=== PATIENT | female | born 1975 | race Caucasian/White ===

== ENCOUNTER → 2019-10-12 10:36 | Outpatient (CLI) | payer BC, SELFPAY ==
--- NOTE | ~2019-10-12 | MM_ITS ---
EXAMINATION: MM screening [place] BI w phi HISTORY: Screening mammogram TECHNIQUE: Craniocaudal and mediolateral oblique 3-D tomosynthesis images were obtained and synthetic 2-D images were generated. CAD analysis was submitted and interpreted. COMPARISON: No prior mammogram is available for comparison at this institution. BREAST PARENCHYMAL COMPOSITION: The breasts are heterogeneously dense, which may obscure small masses . FINDINGS: There is no evidence of suspicious mass, calcification, or architectural distortion to sugg est malignancy in either breast. There has been no suspicious interval change. IMPRESSION: 1. No mammographic evidence of malignancy. 2. Recommend routine screening mammography in one year. BI-RADS Category 1: Negative Reviewed, dictated and finalized at location A. ON GRADER
== END ==
PROVIDERS: PCP Family Medicine; Visit Provider Nurse Practitioner
DX: Z12.31 Encounter for screening mammogram for malignant neoplasm of breast (principal)
CPT/HCPCS: 77063; 77067

== ENCOUNTER 2021-12-29 10:18 | Emergency (ER) | payer OTHER, SELFPAY ==
[2021-12-29 10:22] VITALS: BP 142/89; PULSE 99; RESP 18; O2SAT 100
[2021-12-29 10:27] VITALS: TEMP 36.4
--- NOTE | 2021-12-29 11:22 | ED.GENADULT ---
HPI - General Adult General Chief complaint: Dental/Oral Stated complaint: headache Time Seen by Provider: 12/29/21 10:40 History of Present Illness HPI narrative: 46-year-old female presents to the emergency room for evaluation of left facial pain. Patient states that she been having a burning-like sensation to the left side of her face that radiates into her jaw to her nose and to her forehead. States pain does not go past the midline. Patient states that she has a history of canker sores, and shingles. Patient states the pain is similar. Patient states the pain is intermittent and is not alleviated or exacerbated by anything. Related Data Home Medications Medication Instructions Recorded Confirmed metformin mg PO 12/29/21 Allergies Allergy/AdvReac Type Severity Reaction Status Date / Time No Known Allergies Allergy Mild Verified 04/15/10 19:27 Review of Systems Review of Systems: CONSTITUTIONAL: Denies fever, chills, or sweats. EYES: Denies visual changes, redness, or discharge. ENT: Denies rhinorrhea, congestion, sore throat, or otalgia. CARDIOVASCULAR: Denies chest pain, palpitations, or edema. RESPIRATORY: Denies cough or dyspnea. GASTROINTESTINAL: Denies abdominal pain, nausea, vomiting, or diarrhea. GENITOURINARY: Denies dysuria or hematuria. SKIN: Denies rash or itching. MUSCULOSKELETAL: Denies back pain, joint pain, or myalgia. NEUROLOGIC: Reports left-sided facial pain PSYCHIATRIC: Denies anxiety or depression. Exam Narrative: GENERAL: Well-appearing, well-nourished, and in no acute distress. HEAD: Normocephalic, atraumatic. EYES: PERRLA and EOMI. ENT: Nares clear, no rhinorrhea or epistaxis. Mucous membranes moist. Oropharynx without tonsillar hypertrophy exudate or other lesions. Bilateral TMs pearly land nonbulging; no TMJ tenderness NECK: Supple. No adenopathy or masses. No carotid bruits or JVD CHEST: Clear to auscultation. No respiratory distress. No wheezes rales or rhonchi HEART: Regular rate and rhythm. No murmur heard. Normal peripheral pulses. EXTREMITIES: Normal range of motion. No edema. SKIN: Warm, dry, no rash. NEURO: No focal deficits. Alert and oriented x3. PSYCH: Normal mood and affect. Course Vital Signs Vital signs: Vital Signs Pulse Rate 99 05/03/22 10:22 Respiratory Rate 18 12/29/21 10:22 Blood Pressure 142/89 H 12/29/21 10:22 Pulse Oximetry 100 12/29/21 10:22 Temperature 36.4 C L 12/29/21 10:27 Pulse Rate 99 12/29/21 10:22 Respiratory Rate 18 12/29/21 10:22 Blood Pressure 142/89 H 12/29/21 10:22 Pulse Oximetry 100 12/29/21 10:22 Medical Decision Making [facility] Narrative Medical decision making narrative: 46-year-old female presents the emergency room for evaluation of left-sided facial pain, she describes as a burning sensation that happens intermittently over the past week. CBC shows a slight anemia. we will trial the patient on gabapentin and baclofen, at this time will not use Tegretol due to her history of iron deficiency anemia. Medical Records Medical records reviewed: Yes I reviewed the external patient's medical records. Vital Signs Vital Signs: Vital Signs Pulse Rate 99 12/29/21 10:22 Respiratory Rate 18 12/29/21 10:22 Blood Pressure 142/89 H 12/29/21 10:22 Pulse Oximetry 100 12/29/21 10:22 Temperature 36.4 C L 12/29/21 10:27 Pulse Rate 99 12/29/21 10:22 Respiratory Rate 18 12/29/21 10:22 Blood Pressure 142/89 H 12/29/21 10:22 Pulse Oximetry 100 12/29/21 10:22 Lab Data Lab results reviewed: Yes I reviewed the patient's lab results. Result diagrams: 12/29/21 11:28 Labs: Lab Results 12/29/21 Range/Units 11:28 WBC 5.8 (4.5-10.0) K/mm3 RBC 4.77 (4.2-5.4) M/mm3 Hgb 10.8 L (12.0-15.0) g/dL Hct 35.8 L (37.0-47.0) % MCV 75.1 L (80-100) fl MCH 22.6 L (26-34) pg MCHC 30.2 L (32-36) g/dl RDW 16.2 H (11.5-14.5) % Plt Count 395 H (150-375) k/mm3 M
[2021-12-29 11:33] LABS: Basophils Absolute Auto 0.1 K/mm3 (0.0-0.1); Basophils Percent Auto 1.4 % (0.2-1.2); Eosinophils Absolute Auto 0.3 K/mm3 (0-0.3); Eosinophils Percent Auto 5.3 % (0-4.4); Hematocrit 35.8 % (37.0-47.0); Hemoglobin 10.8 g/dL (12.0-15.0); Immature Granulocyte Absolute 0.03 K/mm3 (0.00-0.031); Immature Granulocyte Percent A 0.5 % (0-0.5); Lymphocytes Absolute Auto 1.31 K/mm3 (0.9-3.2); Lymphocytes Percent Auto 22.6 % (18.3-44.2); Mean Corpuscular HGB Conc 30.2 g/dl (32-36); Mean Corpuscular Hemoglobin 22.6 pg (26-34); Mean Corpuscular Volume 75.1 fl (80-100); Monocytes Absolute Auto 0.4 K/mm3 (0.1-0.6); Monocytes Percent Auto 7.6 % (2.6-8.5); Neutrophils Absolute Auto 3.6 K/mm3 (1.3-6.7); Neutrophils Percent Auto 62.6 % (45.5-73.1); Platelet Count Result 395 k/mm3 (150-375); Red Blood Count 4.77 M/mm3 (4.2-5.4); Red Cell Distribution Width 16.2 % (11.5-14.5); White Blood Count 5.8 K/mm3 (4.5-10.0)
== END 2021-12-29 12:32 | disposition home or self-care (01) ==
PROVIDERS: Emergency Provider Nurse Practitioner Family; PCP Family Medicine
DX: G50.0 Trigeminal neuralgia (principal); D50.9 Iron deficiency anemia, unspecified; Z79.84 Long term (current) use of oral hypoglycemic drugs
CPT/HCPCS: 36415; 85025; 99283

== ENCOUNTER 2022-10-30 16:10 | Emergency (ER) | payer OTHER, SELFPAY ==
[2022-10-30 16:23] VITALS: BP 138/87; PULSE 94; RESP 12; TEMP 36.6; O2SAT 100
--- NOTE | 2022-10-30 16:39 | ED.URI ---
HPI - URI/Sore Throat General Chief Complaint: Upper Respiratory Infection Stated Complaint: Sinus Time Seen by Provider: 10/30/22 16:16 Source: patient Mode of arrival: ambulatory Limitations: no limitations History of Present Illness HPI Narrative: Ms. Rg is a 47 year old female patient presenting to clinic today with complaints of sinus congestion, headache, and cough x8 days. She denies any fever or chills. She denies any known exposure to anyone with COVID, flu, or strep MD elicited complaint: cough, nasal congestion and sinus pain Related Data Home Medications Medication Instructions Recorded Confirmed metformin 500 mg tablet,extended mg PO 12/29/21 release 24 hr metformin 500 mg tablet,extended mg PO 10/30/22 10/30/22 release 24 hr valacyclovir 500 mg tablet mg 10/30/22 Allergies Allergy/AdvReac Type Severity Reaction Status Date / Time No Known Allergies Allergy Mild Verified 10/30/22 16:20 Review of Systems Review of Systems: Pertinent positives per HPI. Patient denies any fever, chills, rash, visual changes, dizziness, shortness of breath, chest pain, palpitations, nausea, vomiting, diarrhea, constipation, abdominal pain, or any urinary issues. PMFSH Comments At the time of my signature, I reviewed and agree with the nursing past medical, surgical, social, and family history. There is no relevant family history pertinent to the patient complaint. Exam Narrative: General: Well-developed, well nourished, in no apparent distress Head: Normocephalic, atraumatic Eyes: Pupils equally round and reactive to light bilaterally, EOM intact, sclera and conjunctive clear, no discharge, lids normal Ears: TMs intact and clear, ear canals clear, no drainage, grossly hearing normal. Nose: Nares patent, clear nasal discharge, moderate inflammation, maxillary sinus tenderness. Mouth: Oral pharynx without lesions or masses, good dentition, MMM. Postnasal drip Neck: Supple, trachea midline, no enlargement of anterior or posterior cervical nodes, no thyroid masses or goiter palpable. Cardio: Regular rate and rhythm, s1 and s2 normal, no murmur appreciated. Resp: Clear to auscultation bilaterally, no rhonchi, rales, wheezing or rubs Course Course Emergency Course: Portions of this record may have been created with voice recognition software. Level of Care: Express Care Visit Vital Signs Vital signs: Vital Signs Temperature 36.6 C 10/30/22 16:23 Pulse Rate 94 10/30/22 16:23 Respiratory Rate 12 10/30/22 16:23 Blood Pressure 138/87 10/30/22 16:23 Pulse Oximetry 100 10/30/22 16:23 Oxygen Delivery Room Air 10/30/22 16:23 Temperature 36.6 C 10/30/22 16:23 Pulse Rate 94 10/30/22 16:23 Respiratory Rate 12 10/30/22 16:23 Blood Pressure 138/87 10/30/22 16:23 Pulse Oximetry 100 10/30/22 16:23 Oxygen Delivery Room Air 10/30/22 16:23 Vital signs reviewed MDM - URI/Sore Throat MDM Narrative Medical decision making narrative: At the time of visit patient is resting comfortably on the exam table. I suspect patient has an upper respiratory infection with postnasal drip. Supportive measures were discussed with the patient she voiced understanding discharge instructions agrees to treatment plan. Prescription for prednisone was sent to pharmacy Differential Diagnosis Differential diagnosis: Likely upper respiratory infection, sinusitis, viral infection, influenza, pharyngitis and other (COVID) Discharge Plan Discharge Clinical Impression: PND (post-nasal drip), Acute dysfunction of both eustachian tubes Upper respiratory infection Qualifiers: URI type: unspecified URI Qualified Code(s): J06.9 - Acute upper respiratory infection, unspecified Patient Disposition: Home, Self-Care Condition: Stable Instructions: Antibiotic Form, Upper Respiratory Infection (ED), Postnasal Drip (DC) Additional Instructions: Take prescription medications only as prescrib
== END 2022-10-30 16:48 | disposition home or self-care (01) ==
PROVIDERS: Emergency Provider Nurse Practitioner Family; PCP Nurse Practitioner
DX: R09.82 Postnasal drip (principal); H69.93 Unspecified Eustachian tube disorder, bilateral; J06.9 Acute upper respiratory infection, unspecified
CPT/HCPCS: 99213; G0463

== ENCOUNTER → 2023-05-10 11:25 | Outpatient (CLI) | payer OTHER, SELFPAY ==
--- NOTE | ~2023-05-10 | US_ITS ---
EXAMINATION: US pelvic complete DATE: 05/10/2023 11:44 INDICATION: Excessive and frequent menstruation Comparison:No prior studies for comparison. TECHNIQUE: Multiple transabdominal and endovaginal sonographic images of the pelvis performed. FINDINGS: The uterus measures 11.2 x 5 x 6.5 cm. The endometrial complex measures 9 mm. The right ovary measures 2.4 x 2 x 2.7 cm and the left ovary measures 3.4 x 2.1 x 3 cm. There are sm all follicles in each ovary. Normal doppler signal in both ovaries. There is no free fluid in the pelvis. There are no abnormal masses seen on either side. IMPRESSION: 1. Unremarkable pelvic ultrasound. Reviewed, dictated and finalized at location L.
== END ==
PROVIDERS: PCP Nurse Practitioner; Visit Provider Nurse Practitioner
DX: N92.1 Excessive and frequent menstruation with irregular cycle (principal)
CPT/HCPCS: 76856

== ENCOUNTER → 2023-08-09 11:25 | Outpatient (CLI) | payer OTHER, SELFPAY ==
--- NOTE | ~2023-08-09 | MM_ITS ---
EXAMINATION: MM screening [place] BI w phi HISTORY: Screening TECHNIQUE: Craniocaudal and mediolateral oblique 3-D tomosynthesis images were obtained and synthetic 2-D images were generated. CAD analysis was submitted and interpreted. COMPARISON: 10/12/2019 BREAST PARENCHYMAL COMPOSITION: The breasts are heterogeneously dense, which may obscure small masses FINDINGS: There is a new focal asymmetry posteriorly and laterally on the right cc view. The left hailey ast is stable without evidence for malignancy. IMPRESSION: 1. New focal asymmetry lateral aspect of the right breast on CC view, posteriorly. 2. Additional mammographic views and possible breast ultrasound are recommended. BI-RADS Category 0: Incomplete: Needs additional imaging evaluation. Reviewed, dictated and finalized at location A. MICS AX DEVELOPER IMPRESSION: 1. New focal asymmetry lateral aspect of the right breast on CC view, posterior ly. 2. Additional mammographic views and possible breast ultrasound are recommended . BI-RADS Category 0: Incomplete: Needs additional imaging evaluation.
== END ==
PROVIDERS: PCP Nurse Practitioner; Visit Provider Nurse Practitioner
DX: Z12.31 Encounter for screening mammogram for malignant neoplasm of breast (principal); R92.8 Other abnormal and inconclusive findings on diagnostic imaging of breast
CPT/HCPCS: 77063; 77067

== ENCOUNTER → 2023-09-12 14:24 | Outpatient (CLI) | payer OTHER, SELFPAY ==
--- NOTE | ~2023-09-12 | MMUS_ITS ---
EXAMINATION: MM diagnostic [place] RT w phi, US breast RT limited HISTORY: Follow-up right breast mass TECHNIQUE: Additional 3-D tomosynthesis images of the right breast were performed and synthetic 2-D i mages were generated. CAD analysis was submitted and interpreted. High resolution Limited right breas t ultrasound was performed. COMPARISON: Comparison to multiple prior studies sequentially, with oldest reviewed study dated 10/12. BREAST PARENCHYMAL COMPOSITION: Breast composed of scattered areas of fibroglandular density FINDINGS: MAMMOGRAPHIC FINDINGS: There is a persistent mass in the lower outer quadrant of the right breast posteriorly. No suspicious calcifications or architectural distortion. ULTRASOUND: Limited right breast ultrasound: At 9:00, 6 cm from the nipple there is a 1.5 cm cyst corresponding t o the mammographic finding. There is an additional 9 mm cyst at 7:00, 3 cm from the nipple. No suspic ious solid masses are identified in the right breast to suggest malignancy. IMPRESSION: 1. No evidence for malignancy in the right breast. Benign findings. 2. . Routine yearly screening mammogram and regular clinical breast examination are recommended. BI-RADS CATEGORY 2 - BENIGN FINDINGS Reviewed, dictated and finalized at location A. D EDUCATION COORDINATOR IMPRESSION: 1. No evidence for malignancy in the right breast. Benign findings. 2. . Routine yearly screening mammogram and regular clinical breast examination are recommended. BI-RADS CATEGORY 2 - BENIGN FINDINGS
== END ==
PROVIDERS: PCP Obstetrics & Gynecology Gynecology; Visit Provider Obstetrics & Gynecology Gynecology
DX: R92.8 Other abnormal and inconclusive findings on diagnostic imaging of breast (principal)
CPT/HCPCS: 76642; 77061; 77065; G0279

== ENCOUNTER 2023-09-16 14:05 | Outpatient (CLI) | payer OTHER, SELFPAY ==
[2023-09-16 15:19] LABS: Hematocrit 39.9 % (37.0-47.0); Hemoglobin 12.6 g/dL (12.0-15.0)
== END 2023-09-16 14:06 | disposition home or self-care (01) ==
PROVIDERS: Anesthesiology; PCP Nurse Practitioner; Visit Provider Obstetrics & Gynecology Gynecology
DX: Z01.818 Encounter for other preprocedural examination (principal); D64.9 Anemia, unspecified
CPT/HCPCS: 36415; 85014; 85018

== ENCOUNTER 2023-09-19 01:19 | Day surgery (SDC) | payer OTHER, SELFPAY ==
[2023-09-15 08:35] VITALS: BMI 35.9
--- NOTE | 2023-09-15 08:44 | PC.NURSE ---
Report to the Outpatient Waiting Room, entrance under the green pavilion located off [facility], at time _0700_ on date _[id number]_. Planned Procedure Time: _0900_. Time changes happen often and if your time is changed the preop area will call you the afternoon before. - You and your visitor will be asked to self-screen and do not enter if you have any COVID symptoms. - A mask is optional within the hospital at this time. Patients may have clear liquids (water, carbonated beverages, clear teas, apple juice) until 3 hours prior to surgery with a maximum of 20 ounces. - No food from midnight until time of surgery Take the following medications with a SIP of water the morning of surgery: ____None DO NOT STOP ANY OF YOUR OTHER PRESCRIPTION MEDICATIONS PRIOR TO SURGERY ?EXCEPT THE FOLLOWING Medications to discontinue per physician ____All vitamins and supplements Date to take last beom__[id number] Please no make-up, nail american, hairspray, perfume, deodorant, or body powder the day of surgery. No jewelry (including any body piercings) or valuables the day of surgery, leave them at home. Please take a shower or bath the night before, or the morning of, surgery with an antibacterial soap. Wear comfortable, loose fitting clothing. - Jewelry must be removed prior to entering the operating room. Rings and piercings that are not removed may be cut off. - The hospital will not accept responsibility for valuables. - Please leave all valuables, including medications, at home the day of surgery. If you are going home after surgery, a licensed tour bus driver must drive you home. - NO public transportation without another adult if you receive anesthesia. - We recommend that an adult stay with you for 24 hours following discharge. - We also recommend that you do not drive, make important decision, drink alcoholic beverages, or take any drugs that were not prescribed by your health care provider for at least 24 hours after your discharge time. Follow any additional instructions given to you from your surgeon. If you or anyone in your household have experienced Covid symptoms in the past week, please notify your surgeon or the nurse liaison at the phone number below for possible testing. Telephone instructions given to __Lori_and asked if any additional questions and then verbalized understanding. Patient advised to call surgeon office or pre surgery nurse liaison [phone] if any additional questions.
--- NOTE | 2023-09-19 07:23 | WPDHPUPDATE1 ---
History and Physical Update Update Date/Time: 09/19/23 07:23 History and Physical has been reviewed, including an updated exam of the patient. There are NO changes in the patient's condition. Risks, benefits, and alternatives have been discussed and questions answered. Patient agrees to proceed with procedure.
--- NOTE | 2023-09-19 07:23 | PM.HPGS ---
History of Present Illness History of Present Illness Consent: Risks, benefits, and alternatives have been discussed and questions answered. Patient agrees to proceed with procedure. Chief complaint: Menorrhagia with anemia Narrative: Carmen Rg is a 47 year old female with prolonged and irregular bleeding. Hemoglobin was 10.7. Pelvic ultrasound was normal. It was recommended to undergo D&C hysteroscopy. Risks of infection, bleeding, perforation, and possible pathology are reviewed. Patient voices understanding and agrees to proceed. Review of Systems Review of Systems: not repeated day of surgery; patient states no changes in status [facility] Past Medical History Medical History (Updated 09/19/23 @ 07:27 by Mackenzie Thakur MD) Migraines (normal spontaneous vaginal delivery) x3 PCOS (polycystic ovarian syndrome) Trigeminal neuralgia Surgical History Surgical History (Updated 09/19/23 @ 07:26 by Mackenzie Thakur MD) History of D&C 2002 for spontaneous History of hysteroscopy 2017 benign History of tonsillectomy Social History Social History Smoking status: Never smoker Alcohol intake: current Drinks per week: 2 Living arrangements: with family Spiritual care concerns: No Meds Home Medications and Allergies Home Medications Medication Instructions Recorded Confirmed Type metformin 500 mg tablet,extended 1,000 mg PO BID 10/30/22 09/15/23 History release 24 hr valacyclovir 500 mg tablet 500 mg PO DAILY 10/30/22 09/15/23 History Tumeric 1,580 mg PO DAILY 09/15/23 09/15/23 History calcium 500 mg tablet 500 mg PO DAILY 09/15/23 09/15/23 History cholecalciferol (vitamin D3) 125 125 mcg PO DAILY 09/15/23 09/15/23 History mcg (5,000 unit) tablet (Vitamin D3) ferrous sulfate 15 mg iron/1.5 mL 10 mg PO DAILY 09/15/23 09/15/23 History oral suspension fexofenadine 180 mg tablet 180 mg PO DAILY 09/15/23 09/15/23 History fluticasone propionate 50 1 spray intranasal DAILY 09/15/23 09/15/23 History mcg/actuation nasal spray,suspension magnesium 250 mg tablet 250 mg PO DAILY 09/15/23 09/15/23 History omega-3 fatty acids 500 mg capsule 500 mg PO DAILY 09/15/23 09/15/23 History Allergies Allergy/AdvReac Type Severity Reaction Status Date / Time No Known Allergies Allergy Mild Verified 09/15/23 08:29 Exam Const: General: healthy appearing and alert Orientation/consciousness: patient oriented x3 Resp: Effort & Inspection: normal respiratory effort : External Female Exam: normal external appearance Speculum Exam - Vagina: normal appearance of the vagina and normal vaginal discharge Speculum Exam - Cervix: normal appearance of the cervix Bimanual exam- vagina & uterus: uterine size normal and consistency normal Bimanual Exam- Adnexa, other: normal adnexae and No adnexal tenderness Neuro: General: patient oriented x3 Assessment and Plan Assessment and plan (1) Menorrhagia: Code(s): N92.0 - Excessive and frequent menstruation with regular cycle Status: Acute Assessment and Plan: menorrhagia with anemia recommended to proceed with D&C hysteroscopy
[2023-09-19 07:24] VITALS: BP 131/91; PULSE 89; RESP 16; TEMP 36.5; O2SAT 100
[2023-09-19] MEDS: LACTATED RINGERS 1,000 ML 30 ML IV CONT (07:30)
[2023-09-19] MEDS: ACETAMINOPHEN 500 MG TABLET 1000 MG PO (07:42)
--- NOTE | 2023-09-19 08:06 | P.PNAN_ITS ---
Anes - Initial Pre Proc Eval Procedure: Operation Date: 09/19/23 09:00 Proposed Procedures p Hysteroscopy Dilation and Curettage - Mackenzie Thakur MD Date/Time: 09/19/23 08:06 Surgeon: Mackenzie Thakur MD Pre Op Diagnosis: Menorrhagia with anemia Patient Data Age: 47 Gender: F Height: 1.57 m Weight: 91.1 kg Last Vital Signs Temp 36.5 C 09/19/23 07:24 Pulse 89 09/19/23 07:24 Resp 16 09/19/23 07:24 BP 131/91 H 09/19/23 07:24 Pulse Ox 100 09/19/23 07:24 O2 Del Method Room Air 09/19/23 07:24 Allergies Allergy/AdvReac Type Severity Reaction Status Date / Time No Known Allergies Allergy Mild Verified 09/19/23 07:34 Home Medications Medication Instructions Recorded Confirmed Type metformin 500 mg tablet,extended 1,000 mg PO BID 10/30/22 09/19/23 History release 24 hr valacyclovir 500 mg tablet 500 mg PO DAILY 10/30/22 09/19/23 History Tumeric 1,580 mg PO DAILY 09/15/23 09/19/23 History calcium 500 mg tablet 500 mg PO DAILY 09/15/23 09/19/23 History cholecalciferol (vitamin D3) 125 125 mcg PO DAILY 09/15/23 09/19/23 History mcg (5,000 unit) tablet (Vitamin D3) ferrous sulfate 15 mg iron/1.5 mL 10 mg PO DAILY 09/15/23 09/19/23 History oral suspension fexofenadine 180 mg tablet 180 mg PO DAILY 09/15/23 09/19/23 History fluticasone propionate 50 1 spray intranasal DAILY 09/15/23 09/19/23 History mcg/actuation nasal spray,suspension magnesium 250 mg tablet 250 mg PO DAILY 09/15/23 09/19/23 History omega-3 fatty acids 500 mg capsule 500 mg PO DAILY 09/15/23 09/19/23 History Patient hx anesthesia problems: none Family hx anesthesia problems: none Results Review: All pre-operative results and documents have been reviewed as part of the pre- operative evaluation. [facility] Past Medical History Medical History Migraines (normal spontaneous vaginal delivery) x3 PCOS (polycystic ovarian syndrome) Trigeminal neuralgia Surgical History Surgical History History of D&C 2003 for spontaneous History of hysteroscopy 2017 benign History of tonsillectomy Social History Social History Smoking status: Never smoker Alcohol intake: current Drinks per week: 2 Living arrangements: with family Spiritual care concerns: No Anes - Eval Final PreProcedure Day of Procedure 09/19/23 08:06 Patient weight: obese Heart: regular rate and rhythm Lungs: clear to auscultation Airway: Mallampati scale class II Neurological: alert and oriented Last oral intake: >/= 8 hours ASA classification: II Emergent: no Anesthetic plan: proceed Anesthesia type and monitoring: general GIVS and standard monitoring Results Review: All pre-operative results and documents have been reviewed as part of the pre- operative evaluation. Informed Consent: The patient's anesthetic plan and its attendant risks and benefits were discussed with the patient/family/POA. Questions were solicited and answers provided to the satisfaction of the patient/family/POA.
[2023-09-19 09:00] VITALS: BP 132/91; PULSE 86; RESP 16; O2SAT 95
--- NOTE | 2023-09-19 09:00 | P.OP_ITS ---
Procedure Note - Detailed Date of Procedure 09/19/23 Pre-op Diagnosis Menorrhagia with anemia Post-op Diagnosis Same Procedure Performed D&C hysteroscopy with resection of polyps Surgeon Mackenzie Thakur MD Anesthesia MAC Findings the uterus sounds to 8cm; there are multiple endometrial polyps Description of Procedure The patient is taken to the operating room and placed under anesthesia in the dorsal lithotomy position. She was prepped and draped in the usual sterile fashion. [place] speculum was placed in the vagina and the cervix grasped on the anterior lip with a tenaculum. The uterus is sounded to 8cm. The diagnostic hysteroscope was placed and with multiple fibroids noted the Flex Aveeta resection device is opened. Under direct visualization the polyps are removed in their entirety. The hysteroscope was then removed. The sharp cure tte is used to curette the endometrium until a good uterine cry was noted in all areas. All sponge, needle, and instrument counts are correct per the OR staff. The patient was taken to recovery in stable condition. Estimated Blood Loss 5 Drains No Packing No Pathology Yes ( Endometrial shavings and curettings) Complications No immediate complications Condition Stable Disposition PACU
[2023-09-19 09:30] VITALS: BP 137/92; PULSE 75; RESP 14
[2023-09-19 10:00] VITALS: BP 131/85; PULSE 71; RESP 16
== END 2023-09-19 10:26 | disposition home or self-care (01) ==
PROVIDERS: PCP Nurse Practitioner; Visit Provider Obstetrics & Gynecology Gynecology
PROC: 0U5B8ZZ Destruction of Endometrium, Via Natural or Artificial Opening Endoscopic (ICD-10-PCS; CPT 58563; principal; 2023-09-19 09:00)
DX: N92.0 Excessive and frequent menstruation with regular cycle (principal); N84.0 Polyp of corpus uteri; D64.9 Anemia, unspecified; E28.2 Polycystic ovarian syndrome; E66.9 Obesity, unspecified; Z68.36 Body mass index [BMI] 36.0-36.9, adult; Z98.890 Other specified postprocedural states; Z79.84 Long term (current) use of oral hypoglycemic drugs
CPT/HCPCS: 58558; 36415; 85014; 85018; 88305; A9270; J1100; J1885; J2250; J2405; J2704; J3010; J7120